=== PATIENT | male | born 1970 | race Caucasian/White ===

== ENCOUNTER 2024-01-25 09:07 | Emergency (ER) | payer OTHER, BC, SELFPAY ==
[2024-01-25 09:19] VITALS: BP 148/100
--- NOTE | 2024-01-25 11:08 | ED.GENMED ---
History of Present Illness
General
Chief Complaint: Musculo-Skeletal Complaint
Source: patient
Time Seen by Provider: 01/25/24 10:57
History of Present Illness
History of Present Illness:
53-year-old male with past medical history of hyperlipidemia presenting to the emergency department for evaluation after he was at work (works as a [employer] worker) who injured his left upper arm while lifting a heavy container on Thursday, tried to
transfer the weight of the container onto his right arm and states also injured the right arm forearm area. Patient states that initially he did not have any pain to the right forearm but this developed on Thursday. 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
who recommended he come to either the hospital or urgent care for evaluation and patient decided to come here. He did not take anything for pain prior to arrival. No other injuries were sustained.
Past History
Past History
ED Past Medical History: Hypercholesterolemia
ED Past Surgical History: None
Social History
Tobacco: Former smoker
Alcohol: None
Drug: None
Personal: Partner
Living: with family
Employment: Employed
Review of Systems
Review of Systems
All Other Systems: ROS reviewed and negative except as documented in HPI and ROS
Phy Exam
Physical Exam
Physical Exam:
GENERAL: Alert , in no apparent distress
EYE: conjunctiva clear
Head: Normocephalic atraumatic
NECK: Supple,
ENT: mmm.
LUNGS: no acute respiratory distress
NEUROLOGICAL: Alert and oriented
SKIN: Warm and dry, LUE: small circular area of ecchymosis to medial bicep with slight ttp
MUSCULOSKELETAL: well perfused. Left upper extremity: Patient moves entirety of the shoulder, elbow, wrist and digits without any difficulty. Right upper extremity: Patient moves entirety of the shoulder, elbow, wrist and digits without
difficulty. Extremities otherwise well-perfused and neurovascular
PSYCH: Normal and appropriate interaction.
Scores
Heart Failure Risk
Heart Failure Risk Score: Not Applicable
Heart Score for Chest Pain Patients
STEMI patient?: Not applicable
Withdrawal Assessment of Alcohol
Withdrawal Assessment Completed?: Not applicable
Course
Vital Signs
Initial and Last Documented VS:
Initial Vital Signs
Temp Pulse Resp BP Pulse Ox
98.2 F 84 18 148/100 97
01/25/24 09:19 01/25/24 09:19 01/25/24 09:19 01/25/24 09:19 01/25/24 09:19
Last Documented Vital Signs
Temp Pulse Resp BP Pulse Ox
98.2 F 84 18 148/100 97
01/25/24 09:19 01/25/24 09:19 01/25/24 09:19 01/25/24 09:19 01/25/24 09:19
MDM/Problems Addressed
Differential Diagnosis Includes:
strain, contusion, no concern for fracture
MDM/Problems Addressed:
53-year-old male presenting emergency department for evaluation after injuring bilateral upper extremities while lifting a heavy package at work. Based off of presentation I am most suspicious for a strain of both extremities. I do not suspect
fracture. Patient requesting we fill out paperwork for Worker's Compensation however informed patient that this is not something that we would be able to provide for him here but that I would be able to provide him a work note that says he was
evaluated here at the emergency department. I encourage patient to contact his employer to see where he can go for Worker's Compensation. He can take NSAIDs/Tylenol as needed for pain. I offered to provide him with information for orthopedics
specialist however patient states he already has 1 and will follow-up with them as needed.
*Pulse Oximetry
Patient hypoxic: no
*Critical Care Note
Total Time (30-74mins, 75-104mins- exclusive of procedures): Not Applicable
ED Attending Note
-
Portions of this chart may have been created with voice recognition software.� Occasional wrong word or��sound alike� substitutions may have occurred due to the inherent limitations of voice recognition software.
Discharge Plan
Departure
Patient Disposition: Home (Routine Discharge)
Date of Disposition: 01/25/24
Time of Disposition: 11:08
Patient with high blood pressure during this ER visit?: Yes
Discharge Problem:
Pain in left upper arm, Pain in right forearm
Instructions: Muscle Strain (DC)
Stand Alone Forms: Return to Work
Interventions
Interventions:
*Risk Screen - Suicide Last Done: 01/25/24 09:19
*General Assessment Last Done: 01/25/24 09:19
*Neglect/Abuse Screening Last Done: 01/25/24 11:24
ED- Fall Risk Assessment Last Done: 01/25/24 11:24
*ED COVID-19 Vaccine History Last Done: 01/25/24 11:24
*Nursing Disposition Last Done: 01/25/24 11:24
ED-Musculoskeletal Assessment Last Done: 01/25/24 11:16
Discharge Date and Time
Discharge Date/Time: 01/25/24 11:38
Print Language: BULGARIAN
== END 2024-01-25 11:38 | disposition home or self-care (01) ==
LOC: EMR 09:07
PROVIDERS: EMERGENCY PHYSICIAN Student in an Organized Health Care Education/Training Program; FAMILY PHYSICIAN Family Medicine
DX: M79.631 Pain in right forearm (principal); M79.622 Pain in left upper arm; S40.022A Contusion of left upper arm, initial encounter; X50.0XXA Overexertion from strenuous movement or load, initial encounter; Y93.89 Activity, other specified; Y92.89 Other specified places as the place of occurrence of the external cause; Y99.0 Civilian activity done for income or pay; R03.0 Elevated blood-pressure reading, without diagnosis of hypertension; E78.00 Pure hypercholesterolemia, unspecified; Z87.891 Personal history of nicotine dependence
CPT/HCPCS: 99282